=== PATIENT | female | born 1970 | race Caucasian/White ===

== ENCOUNTER 2017-02-15 15:39 | Emergency (ER) | payer OTHER ==
[2017-02-15] MEDS ORDERED: NAPROXEN 250 MG TABLET PO ONE (17:09)
--- NOTE | 2017-02-15 17:15 | ER Document Report ---
HPI - HPI Patient complains to provider of: Right wrist pain Onset: Other - 2 days Onset/Duration: Persistent Quality of pain: Achy Pain Level: 2 Context: Patient complains of right wrist pain for the past 2 days. Patient states that pain worsens when she moves her wrist. Patient is right-hand dominant. Patient denies any specific injury to the wrist. Associated Symptoms: Other - Wrist pain Exacerbated by: Movement Relieved by: Remaining still Similar symptoms previously: No Recently seen / treated by doctor: No - ROS ROS below otherwise negative: Yes Systems Reviewed and Negative: Yes All other systems reviewed and negative - CONSTITUTIONAL Constitutional: DENIES: Fever, Chills - NEURO Neurology: DENIES: Weakness - REPRODUCTIVE Reproductive: DENIES: : - MUSCULOSKELETAL Musculoskeletal: REPORTS: Extremity pain. 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 IN LAST 30 DAYS: No - HEENT HEENT: Atraumatic, Normocephalic - NECK Neck: Normal Inspection - RESPIRATORY Respiratory: No Respiratory Distress O2 Sat by Pulse Oximetry: 97 - CARDIOVASCULAR Pulses: Normal: Radial - MUSCULOSKELETAL/EXTREMETIES Musculoskeletal/Extremeties: MAEW, Tender - right wrist tenderness over radial aspect, no edema. Pt with increased tenderness with extension and axial loading - NEURO Level of Consciousness: Awake, Alert, Appropriate Motor/Sensory: No Motor Deficit - DERM Integumentary: Warm, Dry, Rash - palmar surface and to web space of fingers of right hand, scaling erythematous rash Course - Vital Signs Vital signs: Temp Pulse Resp BP Pulse Ox 97.7 F 77 24 H 125/79 97 02/15/17 15:44 02/15/17 15:44 02/15/17 15:44 02/15/17 15:44 02/15/17 15:44 Procedures - Immobilization Right Wrist Pre-Proc Neuro Vasc Exam: Normal Immobilizer type: Cock-up Performed by: PCT Post-Proc Neuro Vasc Exam: Normal Alignment checked and good: Yes Discharge - Discharge Clinical Impression: Tendonitis, Dyshidrotic hand dermatitis Condition: Stable Disposition: HOME, SELF-CARE Instructions: Atopic Dermatitis (Eczema) ([facility]), Tendonitis ([facility]), Anti- Inflammatory Medication ([facility]), Temporary Splint ([facility]) Additional Instructions: Return immediately for any new or worsening symptoms Followup with your primary care provider, call tomorrow to make a followup appointment Follow-up with orthopedic doctor for further evaluation Avoid repetitive movement of right hand and wrist Use lotion, such as Cetaphil, Aquaphor, or Lubriderm, frequently to moisturize hands. Prescriptions: Naproxen [Naprosyn 250 Nmg Tablet] 1 tab PO BID #14 tablet Triamcinolone Acetonide [Aristocort 0.1% Cream] 1 applic TP BID #60 gm Forms: Return to Work Referrals: [facility] ([place] [Provider Group] - Follow up as needed
[2017-02-15 17:55] VITALS: BP 96/71
== END 2017-02-15 17:55 | disposition home or self-care (01) ==
LOC: ER 15:39
DX: L30.1 Dyshidrosis [pompholyx] (principal); M77.9 Enthesopathy, unspecified; M25.531 Pain in right wrist; F17.200 Nicotine dependence, unspecified, uncomplicated
CPT/HCPCS: 99283; L3984

== ENCOUNTER 2017-07-22 07:19 | Day surgery (SDC) | payer OTHER ==
[2017-07-16 10:40] LABS: APPEARANCE,URINE SLIGHTLY-CLOUDY; BILIRUBIN,URINE NEGATIVE (NEGATIVE); GLUCOSE, URINE NEGATIVE (NEGATIVE); KETONES,URINE NEGATIVE (NEGATIVE); LEUKOCYTE ESTERASE,URINE NEGATIVE (NEGATIVE); NITRITE,URINE NEGATIVE (NEGATIVE); PROTEIN,URINE NEGATIVE (NEGATIVE); URINE SPECIFIC GRAVITY 1.005; UROBILINOGEN,URINE NEGATIVE mg/dL (<2.0)
--- NOTE | 2017-07-16 10:40 | RADIOLOGY REPORT (SQ) ---
EXAM DESCRIPTION: CHEST PA/LATERAL COMPLETED DATE/TIME: 07/16/2017 10:27 am REASON FOR STUDY: PRE OP COMPARISON: 05/16/2010 EXAM PARAMETERS: NUMBER OF VIEWS: two views TECHNIQUE: Digital Frontal and Lateral radiographic views of the chest acquired. RADIATION DOSE: NA LIMITATIONS: none FINDINGS: LUNGS AND PLEURA: The lungs are somewhat hyperexpanded. There are no infiltrates or effus ions. There is no mass. MEDIASTINUM AND HILAR STRUCTURES: No masses or contour abnormalities. HEART AND VASCULAR STRUCTURES: Heart normal size. No evidence for failure. BONES: No acute findings. HARDWARE: None in the chest. OTHER: No other significant finding. IMPRESSION: There appear to be mild chronic lung changes. There is no acute cardiopulmonary disease . TECHNICAL DOCUMENTATION: JOB ID: [id number] [employer]- All Rights Reserved
[2017-07-16 11:35] LABS: ABSOLUTE EOSINOPHILS # (AUTO) 0.1 10^3/uL (0.0-0.6); ABSOLUTE LYMPHOCYTES (AUTO) 2.3 10^3/uL (0.5-4.7); ABSOLUTE MONOCYTES (AUTO) 0.3 10^3/uL (0.1-1.4); ABSOLUTE NEUT (AUTO) 1.6 10^3/uL (1.7-8.2); BASOPHILS % (AUTO) 0.9 % (0-2); EOSINOPHILS % (AUTO) 3.4 % (0-6); HEMOGLOBIN 15.4 g/dL (12.0-15.5); HGB HCT DIFFERENCE 1.2; LYMPHOCYTES % (AUTO) 51.8 % (13-45); MEAN CORPUSCULAR HEMOGLOBIN 30.4 pg (27.0-33.4); MEAN CORPUSCULAR HGB CONC 34.1 g/dL (32.0-36.0); MEAN CORPUSCULAR VOLUME 89 fl (80-97); MONOCYTES % (AUTO) 6.8 % (3-13); RED BLOOD COUNT 5.06 10^6/uL (3.72-5.28); RED CELL DISTRIBUTION WIDTH 13.6 % (11.5-14.0); SEGMENTED NEUTROPHILS % (AUTO) 37.1 % (42-78); WHITE BLOOD COUNT 4.4 10^3/uL (4.0-10.5)
[2017-07-16 12:02] LABS: ANION GAP 14 (5-19); BLOOD UREA NITROGEN 8 mg/dL (7-20); CALCIUM 9.7 mg/dL (8.4-10.2); CARBON DIOXIDE 23 mmol/L (22-30); CHLORIDE 106 mmol/L (98-107); CREATININE RESULT 0.73 mg/dL (0.52-1.25); GLUCOSE 78 mg/dL (75-110)
--- NOTE | 2017-07-16 23:58 | EKG REPORT ---
SEVERITY:- ABNORMAL ECG - SINUS RHYTHM ATRIAL PREMATURE COMPLEX LEFT ANTERIOR FASCICULAR BLOCK : Confirmed by: Davida Murrell 16-Jul-2017 23:57:30
[~2017-07-22 07:19] MED LIST: CEFAZOLIN 2 GM/D5W RTU 2 GM/50 ML RTUPB IV PRN; RINGERS SOLUTION,LACTATED 1,000 ML IV PRN
[2017-07-22] MEDS ORDERED: BUPIVACAINE HCL 0.5 % INJ/PF 30 ML SDV ONE (08:28)
[2017-07-22] MEDS ORDERED: PROPOFOL INJ 200 MG/20 ML VIAL IV ONE (08:33)
[2017-07-22] MEDS ORDERED: MIDAZOLAM 2 MG/2 ML INJ ONE (08:33)
[2017-07-22] MEDS ORDERED: FENTANYL CITRATE INJ/PF 100 MCG/2 ML AMPUL ONE (08:33)
[2017-07-22] MEDS ORDERED: MORPHINE SULFATE 10 MG/ML INJ IV PRN ×2 (09:15→09:54)
[2017-07-22] MEDS ORDERED: FENTANYL CITRATE INJ/PF 100 MCG/2 ML AMPUL IV PRN ×3 (09:15)
[2017-07-22] MEDS ORDERED: PROMETHAZINE HCL INJ 25 MG/1 ML VIAL IV PRN (09:15)
[2017-07-22] MEDS ORDERED: DIPHENHYDRAMINE HCL 50 MG/ML VIAL IV PRN (09:15)
[2017-07-22] MEDS ORDERED: MEPERIDINE HCL/PF INJ 25 MG/1 ML DISP.SYRIN IV PRN (09:15)
[2017-07-22] MEDS ORDERED: OXYCODONE-ACETAMINOPHEN 5-325 MG TABLET PO PRN (09:54)
--- NOTE | 2017-07-22 09:54 | PDOC DISCHARGE SUMMARY ---
Discharge Summary (SDC) - Discharge Final Diagnosis: #1 Right Cubital Tunl. release #2 Right Endoscopic Carpal Tunl. release #3 first dorsal compartment release Date of Surgery: 07/22/17 Discharge Date: 07/22/17 Condition: Good Treatment or Instructions: Schedule Follow Up w/ Dr. Meliton Marcano @ [facility] to be seen in 10-14 days or as scheduled [place]: [place]: [place]: May remove dressing on postop day #3, keep incision covered and dry. Ice and elevate May begin finger range of motion attempting to make full fist. Stool softener of choice when on pain medication. Prescriptions: Oxycodone HCl/Acetaminophen [Percocet 5-325 mg Tablet] 1 - 2 tab PO ASDIR PRN # 35 tablet PRN Reason: Discharge Diet: As Tolerated Respiratory Treatments at Home: Deep Breathing/Coughing, Incentive Spirometer Discharge Activity: No Lifting Over 10 Pounds, No Lifting/Push/Pulling Report the Following to Your Physician Immediately: Fever over 101 Degrees, Unusual Bleeding, Redness, Swelling, Warmth, Increased Soreness
--- NOTE | 2017-07-22 09:55 | Operative Report ---
Operative Report DATE OF SURGERY: 07/22/17 PREOPERATIVE DIAGNOSIS: Right wrist carpal tunnel syndrome, de Quervain's tenosynovitis. Right cubital tunnel syndrome POSTOPERATIVE DIAGNOSIS: Same OPERATION: #1 Right Cubital Tunl. release. #2 Right Endoscopic Carpal Tunl. release. #3 first dorsal compartment release with tenosynovectomy SURGEON: CAROLYN LOCO ANESTHESIA: GA COMPLICATIONS: None ESTIMATED BLOOD LOSS: Minimal PROCEDURE: Indication for above procedure: 47-year-old female with long-standing history of numbness and tingling in her thumb, index middle and small fingers. On examination patient has findings consistent with carpal and concomitant cubital tunnel syndrome. Furthermore patient suffered from de Quervain's tenosynovitis. We attempted conservative measures without resolution of patient's symptoms at that point the joint decision was made to proceed with operative treatment. Risks and benefits were explained patient verbalized understanding consented for the procedure. Procedure In Detail: Patient was seen and evaluated in the preoperative holding area. The RIGHT upper extremity was initialized and marked. Patient received 2g of Ancef IV for bacterial prophylaxis. Patient was taken back to the operative room where transferred to the operative table and placed under general anesthesia. Once they were adequately anesthetized and a nonsterile tourniquet was placed on the upper extremity. A surgical team debriefing was performed ensuring all instrumentation was available, the surgical procedure was discussed with possible concerns reviewed. The upper extremity was prepped with chlorhexidine and alcohol and draped in a sterile fashion. A timeout was done identifying correct patient, procedure and extremity everyone in attendance agree with this and verbalized no concerns. The extremity was exsanguinated the tourniquet was inflated to 250 mmHg. A longitudinal skin incision was made centered over the cubital tunnel. Careful dissection was done through the overlying soft tissues any peripheral vasculature was carefully coagulated with bipolar cautery. The branches of the medial antebrachial cutaneous nerve were identified and protected throughout the entirety of the case. Once within the confines of the cubital tunnel the ulnar nerve was identified at the proximal aspect of the wound. At this level I carefully released a medial portion of the triceps and the medial intermuscular septum freeing the ulnar nerve proximally of any overlying soft tissue compression. I then continued to track the ulnar nerve distally releasing Mack's fascia. At the level of the FCU aponeurosis between the 2 heads of the FCU muscle. The fascia was released once again relieving any external compression from the ulnar nerve distally past the level of the first motor branch. I then freed up the nerve posteriorly ensuring there is no remaining soft tissue bands causing compression. During dissection of the nerve careful attention was directed at avoiding disruption of the ulnar nerve blood supply. Elbow range of motion was then done from full flexion to full extension with full flexion there was no evidence of anterior subluxation of the ulnar nerve from the groove. And thus I determined patient would no require anterior subcutaneous ulnar nerve transposition. A transverse skin incision was made just proximal to the wrist flexion crease ulnar to the palmaris longus. Blunt dissection was performed down to the palmaris longus tendon which was retracted radially. Deep to the palmaris longus tendon was the volar carpal ligament this was incised identifying the median nerve deep. With the use of a [place] elevator any soft tissue/synovium was freed from the undersurface of the transverse carpal ligament. The hook of hamate was identified ulnarly. The ConMed cannulas were then introduced beginning with #1 progressing to a #3 gently dilating the carpal canal. I then introduced the scope within the cannula and identified transverse carpal ligament ensuring the median nerve was not visualized within the cannula. I triangulated distally with a 25-gauge needle identifying the distal aspect of the transverse carpal ligament, to ensure protection of the superficial palmar arch. The arthroscopic knife was used to incise the transverse carpal ligament under direct visualization with the arthroscopic camera. Any excess transverse fibers that remained after the first past were carefully released with a repeat pass. The median nerve was then directly visualized radially without disruption. Once this was completed I placed the #3 dilator and assured I got complete release of the transverse carpal ligament without residual compression. The median nerve was directly visualized and free of any overlying compression. I then turned my attention to release of the volar antebrachial fascia proximally. Once again a [place] was used to open the wound and I proceeded with cannula #1 to #3. The arthroscope was introduced into the cannula and under direct visualization the volar antebrachial fascia was released. Once this was complete I copiusly irrigated the wound with normal saline. You A longitudinal skin incision was centered over the first dorsal arm at the level of the radial styloid. Careful dissection was done through the soft tissues the superficial branch of the radial nerve was identified and retracted with the skin. There is a small vein overlying the first dorsal compartment which was carefully retracted but not disrupted. Any peripheral vasculature was coagulated with bipolar cautery. I then identified the first dorsal compartment. The first dorsal compartment was incised along its dorsal third to avoid postoperative volar subluxation. Within the first dorsal compartment or significant tenosynovitis and thus a partial tenosynovectomy was performed. The APL and EPB tendons were identified. There was evidence of a sub- compartment of the EDB which was release furthermore there was 4 tendon slips of the APL likely also contributing to patient's symptoms. I ensured complete release the first dorsal compartment distally and proximally. The wrist was then placed through range of motion to ensure no subluxation of the first dorsal compartment tendons. The wound was then irrigated with normal saline. The skin incisions were closed with 4-0 Monocryl subcutaneous and a running subcuticular 4-0 Monocryl. This was reinforced with Dermabond and Steri- Strips. Sterile, 4 x 4's and a Isaias bandage was placed loosely. Sponge counts, instrument counts and needle counts were correct. The was no intraoperative complications patient tolerated the procedure well and was stable to PACU. Postoperative plan: Patient will follow-up in the office as scheduled which point we will proceed with wound check. She may begin gentle range of motion exercises but avoid any heavy lifting at her first postoperative appointment.
[2017-07-22] MEDS: MEPERIDINE HCL/PF INJ 25 MG/1 ML DISP.SYRIN ONE ×2 (10:18→10:23)
[2017-07-22 12:01] VITALS: BP 116/77
[2017-07-22] MEDS ORDERED: LIDOCAINE 2% INJ-PF (20 MG/ML) 2 ML AMPUL ONE (13:12)
[2017-07-22] MEDS ORDERED: ONDANSETRON HCL INJ/PF 4 MG/2 ML SDV ONE (13:12)
== END 2017-07-22 11:50 | disposition home or self-care (01) ==
LOC: OROUT 07:19
PROVIDERS: ATTEND Orthopaedic Surgery
PROC: 01N54ZZ Release Median Nerve, Percutaneous Endoscopic Approach (ICD-10-PCS; 2017-07-22)
PROC: 01N40ZZ Release Ulnar Nerve, Open Approach (ICD-10-PCS; 2017-07-22)
PROC: 0LN50ZZ Release Right Lower Arm and Wrist Tendon, Open Approach (ICD-10-PCS; principal; 2017-07-22 09:15)
DX: G56.01 Carpal tunnel syndrome, right upper limb (principal); G56.21 Lesion of ulnar nerve, right upper limb; M65.4 Radial styloid tenosynovitis [de Quervain]; M65.831 Other synovitis and tenosynovitis, right forearm; F17.210 Nicotine dependence, cigarettes, uncomplicated; M79.641 Pain in right hand
CPT/HCPCS: 93005; 36415; 85025; 80048; 81001; 88305 ×2; 71020; 93010; 25000; 29848; 64718; J2250; J3010; J2175; J2405; J2704; J0690; J3490; 1810